=== PATIENT | male | born 1940 | race Caucasian/White ===

== ENCOUNTER 2016-10-10 08:04 | Day surgery (SDC) | payer OTHER, BC ==
[~2016-10-10] VITALS: Ht 180.3 cm; Wt 74.3 kg
[~2016-10-10 08:04] MED LIST: DAILY VALUE1 EACH PO; INDERAL XL80 MG PO; VITAMIN D31000 UNI2 PO
[2016-10-10 09:18] VITALS: BP 141/70
[2016-10-10] MEDS ORDERED: COLACE100 MG PO (11:18)
[2016-10-10] MEDS ORDERED: PERCOCET 5/31 TABLET PO (11:18)
[2016-10-10 12:26] VITALS: BP 152/77
[2016-10-10 13:52] VITALS: BP 156/75
== END 2016-10-10 14:10 | disposition home or self-care (01) ==
LOC: SDC 08:04
DX: K64.8 Other hemorrhoids (principal); K62.89 Other specified diseases of anus and rectum; Z86.010 Personal history of colon polyps; N40.0 Benign prostatic hyperplasia without lower urinary tract symptoms; G25.0 Essential tremor; E55.9 Vitamin D deficiency, unspecified; Z82.49 Family history of ischemic heart disease and other diseases of the circulatory system
CPT/HCPCS: J0330; J0585; J1100; J2405; J3010; S0030